=== PATIENT | male | born 1985 | race Hispanic/Latino ===

== ENCOUNTER 2018-12-30 23:39 | Emergency (ER) | payer OTHER ==
--- NOTE | 2018-12-31 00:06 | RAD ---
EXAM: Single view of the chest HISTORY: Syncope COMPARISON: None FINDINGS: Single view of the chest shows a normal sized cardiomediastinal silhouette. There is no laury dence of consolidation, mass, or pleural effusion. The bones are unremarkable. IMPRESSION: No evidence of acute cardiopulmonary disease
[2018-12-31 00:36] LABS: #Basophils 0.1 thou/uL (0.0-0.2); #Eosinphils 0.1 thou/uL (0.0-0.7); #Lymphocytes 2.2 thou/uL (1.20-3.40); #Monocytes 0.8 thou/uL (0.11-0.59); #Neutrophils 5.6 thou/uL (1.40-6.50); %Eosinophils 0.9 % (0.0-10.0); %Lymphocytes 25.2 % (21.0-51.0); %Monocytes 9.3 % (0.0-10.0); %Neutrophils 63.6 % (42.0-75.0); Hemoglobin 16.3 g/dL (14.0-18.0); Mean Corpuscular Hemoglobin 38.8 pg (27.0-31.0); Platelet Count 287 thou/uL (130-400); RBC Distribution Width 11.7 % (11.5-14.5); Red Blood Cell (RBC) Count 4.19 mill/uL (4.70-6.10); White Blood Cell (WBC) Count 8.8 thou/uL (4.8-10.8)
[2018-12-31 00:59] LABS: ALT (SGPT) 56 U/L (8-55); AST (SGOT) 53 U/L (5-34); Albumin 3.6 g/dL (3.5-5.0); Alkaline Phosphatase 79 U/L (40-110); Anion Gap 21 mmol/L (10-20); BUN (Urea Nitrogen) 9 mg/dL (8.9-20.6); Bilirubin, Total 0.6 mg/dL (0.2-1.2); Calc. Creatinine Clearance 0 mL/min (70-130); Carbon Dioxide 19 mmol/L (22-29); Chloride 101 mmol/L (98-107); Estimated GFR-MDRD 71; Globulin 3.4 g/dL (2.4-3.5); Glucose 113 mg/dL (70-105); Potassium 3.6 mmol/L (3.5-5.1); Sodium 137 mmol/L (136-145)
[2018-12-31] MEDS ORDERED: Mag-Al 1200 mg/1200 mg/30 ML UDCUP ONE (01:37)
[2018-12-31] MEDS ORDERED: Lidocaine Viscous Sol 2% 15 ml UD Cup ONE (01:37)
== END 2018-12-31 01:54 | disposition home or self-care (01) ==
LOC: EEVIPCON 23:39 → ERS 23:39
DX: R55 Syncope and collapse (principal); I10 Essential (primary) hypertension; Z79.899 Other long term (current) drug therapy
CPT/HCPCS: 36415; 71045; 80053; 84484; 85025; 93005; J0500

== ENCOUNTER 2018-12-31 07:02 | Inpatient (IN) | payer OTHER ==
[2018-12-31 07:45] LABS: #Lymphocytes 0.8 thou/uL (1.20-3.40); #Neutrophils 10.9 thou/uL (1.40-6.50); %Basophils 0.1 % (0.0-1.0); %Eosinophils 0.1 % (0.0-10.0); %Lymphocytes 6.5 % (21.0-51.0); %Monocytes 7.8 % (0.0-10.0); %Neutrophils 85.5 % (42.0-75.0); Hemoglobin 16.3 g/dL (14.0-18.0); Mean Corpuscular HGB CONC 35.5 g/dL (32.0-36.0); Mean Corpuscular Hemoglobin 37.9 pg (27.0-31.0); Mean Platelet Volume 6.6 fL (7.4-10.4); Platelet Count 264 thou/uL (130-400); RBC Distribution Width 11.7 % (11.5-14.5); Red Blood Cell (RBC) Count 4.29 mill/uL (4.70-6.10); White Blood Cell (WBC) Count 12.7 thou/uL (4.8-10.8)
--- NOTE | 2018-12-31 08:11 | CT ---
CT Abdomen Pelvis W Con History: Abdominal pain Comparison: CT abdomen and pelvis stone protocol 2009 Findings: Lung bases are clear. No pericardial effusion. There is mild edematous pancreatitis without evidence of necrosis. No acute peripancreatic fluid raymundo ection. Mild inflammatory retroperitoneal fluid around the pancreas in the anterior pararenal space. The liver is unremarkable along with the spleen and adrenal glands. No hydroureteronephrosis. No dilated loops of large or small bowel. Impression: Uncomplicated acute edematous pancreatitis without well-defined acute peripancreatic flui d collection.
[2018-12-31] MEDS ORDERED: Ondansetron PF 4 MG/2 ML Vial ONE (08:28)
[2018-12-31] MEDS ORDERED: Morphine 4 MG/ML VIAL ONE (08:28)
[2018-12-31 08:29] LABS: ALT (SGPT) 54 U/L (8-55); AST (SGOT) 42 U/L (5-34); Albumin 3.9 g/dL (3.5-5.0); Alkaline Phosphatase 88 U/L (40-110); Anion Gap 16 mmol/L (10-20); BUN (Urea Nitrogen) 7 mg/dL (8.9-20.6); Bilirubin, Total 0.7 mg/dL (0.2-1.2); Calc. Creatinine Clearance 0 mL/min (70-130); Calcium 9.1 mg/dL (7.8-10.44); Carbon Dioxide 26 mmol/L (22-29); Chloride 99 mmol/L (98-107); Estimated GFR-MDRD 77; Glucose 116 mg/dL (70-105); Potassium 3.8 mmol/L (3.5-5.1); Protein, Total 6.9 g/dL (6.0-8.3); Sodium 137 mmol/L (136-145)
[2018-12-31 08:43] LABS: Lipase 2387 U/L (8-78)
[2018-12-31] MEDS ORDERED: Fentanyl 100 MCG/2 ML VIAL ONE (09:30)
[2018-12-31] MEDS ORDERED: ISOVUE-370 76%-LOCM 1 ML ONE (09:45)
[2018-12-31 10:16] LABS: Bilirubin Negative (Negative); Blood, Urine Negative (Negative); Clarity Clear (Clear); Glucose, Urine (Dipstick) Normal (Negative); Leukocyte Negative Leu/uL (Negative); Nitrite Negative (Negative); Protein, Urine (Dipstick) Negative (Neg-Trace); Urobilinogen Normal mg/dL (Less than 2)
[2018-12-31 11:12] LABS: Lactic Acid 1.1 mmol/L (0.5-2.2)
[2018-12-31] MEDS ORDERED: Ondansetron PF 4 MG/2 ML Vial IVP PRN ×2 (11:49→15:01)
[2018-12-31] MEDS ORDERED: Ondansetron ODT 4 MG TAB SL PRN (11:49)
[2018-12-31] MEDS ORDERED: Morphine 4 MG/ML VIAL SLOW IVP PRN (11:50)
[2018-12-31 11:59] VITALS: BMI 31.8
[2018-12-31] MEDS: Sodium Chloride 0.9% 1,000 ML IV SCH ×4 (12:37→21:17)
[2018-12-31] MEDS ORDERED: Bisacodyl 5 MG TAB PO PRN (15:01)
[2018-12-31] MEDS ORDERED: Morphine 2 MG/ML SYRINGE SLOW IVP PRN (15:01)
[2018-12-31] MEDS: Fentanyl 100 MCG/2 ML VIAL SLOW IVP PRN ×2 (15:21→21:24)
[2018-12-31] MEDS: Ketorolac Tromethamine 30 MG/ML VIAL IVP PRN (18:33)
--- NOTE | 2018-12-31 18:40 | HP ---
PRIMARY CARE PROVIDER: [facility]. CHIEF COMPLAINT: Vomiting and abdominal pain. HISTORY OF PRESENT ILLNESS: Mr. Hill is a pleasant 33-year-old gentleman, who was seen at [facility] on December 31, 2018. He was hospitalized at this facility in November 2013, for cholecystitis and choledocholithiasis. He underwent laparoscopic cholecystectomy. He reports that he was doing relatively well since then. He reports having chronic diarrhea, attributes it to possible irritable bowel syndrome. Yesterday, he was at his mother's place. He had lunch. In the evening, he developed diffuse abdominal pain around 8:00 p.m. He describes it as sharp, 10/ 10, initially all over his abdomen, subsequently localizing to his upper abdomen, radiating to the back, accompanied by nausea. He vomited 3 times. He felt better. He got up to leave. He then felt lightheaded and fell to the floor. He reports hitting his head on the floor. He presented to the emergency room. He reports that he lost consciousness for a few seconds when he fell. He was discharged home from the emergency room. After he went home, he continued to have nausea and abdominal pain. He therefore presented to the emergency room again. He was diagnosed with acute pancreatitis and referred to Hospitalist Service for admission. REVIEW OF SYSTEMS: All systems were reviewed and found to be negative except for the pertinent positives mentioned above. PAST MEDICAL HISTORY: Hypertension. PAST SURGICAL HISTORY: Cholecystectomy and appendectomy. PSYCHIATRIC HISTORY: PTSD. SOCIAL HISTORY: The patient drinks 3 to 4 beers a day. Denies tobacco use or recreational drug use. ALLERGIES: NO KNOWN DRUG ALLERGIES. CURRENT MEDICATIONS: 1. Lexapro 20 mg daily. 2. Hydrochlorothiazide 12.5 mg daily. 3. Lisinopril 20 mg daily. FAMILY HISTORY: No family history of premature coronary artery disease. PHYSICAL EXAMINATION: GENERAL: On examination, Mr. Hill is awake and alert, not in acute distress. VITAL SIGNS: Blood pressure is 132/90, pulse 85, respiratory rate 22, and oxygen saturation 95% on room air. He is afebrile. EYES: No scleral icterus, no conjunctival pallor. ENT: Dry mucosal membranes. No oropharyngeal erythema or exudates. NECK: Supple, nontender, trachea is midline. RESPIRATORY: Accessory muscles of breathing are not active. Chest wall movements are symmetric bilaterally. LUNGS: Clear to auscultation without wheezes, rhonchi, or crepitations. CARDIOVASCULAR: S1 and S2 are heard, regular. Peripheral pulses palpable. ABDOMEN: Soft, tender in the epigastrium, no guarding or rigidity. Bowel sounds are heard. NEUROLOGIC: Cranial nerves 2 through 12 are intact. MUSCULOSKELETAL: Power is 5/5 in all 4 extremities. SKIN: No rashes or subcutaneous nodules. LYMPHATIC: No cervical lymphadenopathy. PSYCHIATRIC: Normal mood, normal affect. The patient is oriented to person, place, and time. LABORATORY DATA: Mr. Hill's labs and investigations were reviewed. Electrocardiogram shows normal sinus rhythm, no ST changes to suggest an acute coronary syndrome. Chest x-ray done yesterday did not show any pulmonary infiltrates. Today, he had CT scan of the abdomen and pelvis with contrast, which showed uncomplicated acute edematous pancreatitis without well-defined acute peripancreatic fluid collection. He has leukocytosis with 12,700 white cells, of which 85.5% are neutrophils, normal hemoglobin, normal platelet count, unremarkable comprehensive metabolic profile, and elevated lipase of 2387. Lactic acid was initially elevated at 2.6, subsequently normalized at 1.1. Urinalysis is positive for ketones, negative for nitrite, and leukocyte esterase. ASSESSMENT AND PLAN: Mr. Hill is a pleasant 33-year-old gentleman who was seen at [facility] on December 31, 2018. His problem list includes: 1. Acute pancreatitis. Mr. Hill is presenting with acute pancreatitis. He will be admitted to the hospital. He will be treated with intravenous fluids and pain medications. He will be kept n.p.o. except for ice chips. We will recheck lipase level. 2. Syncope, most likely vasovagal, given the context of for severe abdominal pain. We will monitor him on telemetry. We will check 2D echocardiogram to rule out any valvular abnormalities. We will check noncontrast CT scan of the brain given his history of head trauma. 3. Hypertension. Resume home medications, monitor vital signs and titrate antihypertensives as needed. 4. Posttraumatic stress disorder. Continue Lexapro. LEVEL OF RISK: Moderate. LEVEL OF COMPLEXITY: Moderate. Many thanks for allowing me to participate in your patient's care. Please feel free to contact me with any questions or concerns. Job ID: [id number] [facility]
[2019-01-01] MEDS: Acetaminophen 325 MG TAB PO PRN ×3 (00:25→18:05)
[2019-01-01] MEDS: Ketorolac Tromethamine 30 MG/ML VIAL IVP PRN ×4 (00:52→18:05)
[2019-01-01] MEDS: Fentanyl 100 MCG/2 ML VIAL SLOW IVP PRN ×3 (03:42→22:17)
[2019-01-01 04:52] LABS: ALT (SGPT) 36 U/L (8-55); AST (SGOT) 37 U/L (5-34); Albumin 3.1 g/dL (3.5-5.0); Alkaline Phosphatase 73 U/L (40-110); Anion Gap 14 mmol/L (10-20); BUN (Urea Nitrogen) 11 mg/dL (8.9-20.6); Bilirubin, Total 1.3 mg/dL (0.2-1.2); Calc. Creatinine Clearance 117 mL/min (70-130); Calcium 7.4 mg/dL (7.8-10.44); Carbon Dioxide 24 mmol/L (22-29); Cardiac Risk 3.4 (Less than 4.5); Chloride 103 mmol/L (98-107); Cholesterol 131 mg/dl (< 200 Desired); Estimated GFR-MDRD 78; Globulin 2.5 g/dL (2.4-3.5); Glucose 97 mg/dL (70-105); HDL Cholesterol 39 mg/dL (>60 Neg Risk); LDL Cholesterol, Calculated 78 mg/dL; Lipase 645 U/L (8-78); Potassium 3.6 mmol/L (3.5-5.1); Protein, Total 5.6 g/dL (6.0-8.3); Sodium 137 mmol/L (136-145); Triglycerides 70 mg/dL (Less than 150)
[2019-01-01 04:53] LABS: Hemoglobin 15.2 g/dL (14.0-18.0); MDiff Complete? YES; Mean Platelet Volume 7.4 fL (7.4-10.4); Platelet Count 197 thou/uL (130-400); RBC Distribution Width 11.8 % (11.5-14.5); White Blood Cell (WBC) Count 17.5 thou/uL (4.8-10.8)
[2019-01-01 04:54] LABS: Band 14 % (5-11); Hypochromia SLIGHT = 6-15 cells (100X) (0-5/hpf); Macrocytosis SLIGHT = 6-15 cells (100X) (0-5/hpf); Monocytes 1 % (0-10); Neutrophil 85 % (42-75); Platelet Morphology Comment Appears Adequate
[2019-01-01] MEDS: Sodium Chloride 0.9% 1,000 ML IV SCH ×3 (06:01→20:52)
--- NOTE | 2019-01-01 08:26 | CT ---
CT BRAIN NONCONTRAST: DATE: 01/01/2019 HISTORY: 33-year-old male status post acute head trauma from fall FINDINGS: There is no evidence of acute intra-axial or extra-axial hemorrhage. There is no midline shift or any other mass effect. There is no extra-axial fluid collection. The ventricles are normal in size and configuration. The tympanomastoid cavities, and the upper portions of the paranasal sinuses included in these images, are grossly clear. Calvarium is intact. IMPRESSION: Normal.
[2019-01-01] MEDS ORDERED: Enoxaparin Sodium 40 MG/0.4 ML SYRINGE SC SCH (09:00)
[2019-01-01] MEDS: Hydrochlorothiazide 25 MG TAB PO SCH (09:06)
[2019-01-01] MEDS: Lisinopril 20 MG TAB PO SCH (09:06)
[2019-01-01] MEDS: Escitalopram Oxalate 20 mg Tablet PO SCH (09:07)
[2019-01-01 09:52] LABS: Magnesium 1.2 mg/dL (1.6-2.6); Phosphorus 2.2 mg/dL (2.3-4.7)
[2019-01-01] MEDS: MEROPENEM 1 GM/50 ML 1 GM in Premix Bag 1 BAG IVPB SCH ×2 (11:20→18:05)
--- NOTE | 2019-01-01 15:12 | PDOC.HOSPP ---
- Subjective Encounter Date: 01/01/19 Encounter Time: 08:00 Subjective: Pt seen for followup re; acute pancreatitis. Abdo pain still +. nausea better. - Objective Vital Signs & Weight: Vital Signs (12 hours) Temp Pulse Resp BP BP Pulse Ox 01/01/19 11:46 98.0 F 65 20 117/83 92 L 01/01/19 09:06 121/88 01/01/19 09:03 98.3 F 93 22 H 121/88 93 L 01/01/19 04:00 99.4 F 91 18 115/75 92 L 01/01/19 03:39 97.9 F 99 20 114/77 94 L Weight Weight 194 lb 14.4 oz I&O: 12/31/18 01/01/19 01/02/19 06:59 06:59 06:59 Intake Total 1998 Output Total 150 Balance 1849 Result Diagrams: 01/01/19 03:55 01/01/19 03:55 Additional Labs: Labs and MARs reviewed by me EKG Reviewed by me: Yes (Tele: NSR) Hospitalist ROS - Review of Systems Respiratory: denies: cough, dry, shortness of breath, hemoptysis, SOB with excertion, pleuritic pain, sputum, wheezing Cardiovascular: denies: chest pain, palpitations, orthopnea, paroxysmal noc. dyspnea, edema, light headedness Gastrointestinal: reports: abdominal pain - Medication Medications: Active Medications Generic Name Dose Route Start Last Admin Trade Name Freq PRN Reason Stop Dose Admin Acetaminophen 650 mg 12/31/18 23:43 01/01/19 12:26 Tylenol PO 650 mg Q6H PRN Administration Headache/Fever or Pain Escitalopram Oxalate 20 mg 01/01/19 09:00 01/01/19 09:07 Lexapro PO 20 mg DAILY CHAVA Administration Fentanyl 12.5 mcg 12/31/18 15:05 01/01/19 09:03 Sublimaze SLOW IVP 12.5 mcg Q6H PRN Administration Pain Hydrochlorothiazide 12.5 mg 01/01/19 09:00 01/01/19 09:06 Hydrochlorothiazide PO 12.5 mg DAILY CHAVA Administration Sodium Chloride 1,000 mls @ 125 mls/hr 12/31/18 15:15 01/01/19 06:01 Normal Saline 0.9% IV 1,000 mls .Q8H CHAVA Administration Meropenem 1 gm/ Device 50 mls @ 100 mls/hr 01/01/19 10:00 01/01/19 11:20 IVPB 50 mls 0200,1000,1800 CHAVA Administration Ketorolac Tromethamine 15 mg 12/31/18 17:21 01/01/19 12:26 Toradol IVP 01/05/19 17:22 15 mg Q6H PRN Administration Pain Lisinopril 20 mg 01/01/19 09:00 01/01/19 09:06 Zestril PO 20 mg DAILY CHAVA Administration - Exam General - other findings: Obese Eye: anicteric sclera ENT: moist mucosa Neck: supple Heart: RRR, no rubs Respiratory: CTAB Gastrointestinal: soft, normal bowel sounds, no guarding, no rigidity, tender to palpation Extremities: no clubbing Skin: no rashes Musculoskeletal: no muscle wasting Psychiatric: normal affect, normal behavior Hosp A/P (1) Acute pancreatitis Code(s): K85.90 - ACUTE PANCREATITIS WITHOUT NECROSIS OR INFECTION, UNSP Status: Acute (2) HTN (hypertension) Code(s): I10 - ESSENTIAL (PRIMARY) HYPERTENSION Status: Chronic (3) PTSD (post-traumatic stress disorder) Code(s): F43.10 - POST-TRAUMATIC STRESS DISORDER, UNSPECIFIED Status: Chronic - Plan Lipase improved 645. Continue IV fluids. Continue IV fentanyl and IV toradol. Pt spiked robbie, has bandemia and worsening leucocytosis. Will start empiric antibiotics and await blood cultures. Consult GI service. HTN controlled. Continue Lexapro for PTSD.
[2019-01-01] MEDS ORDERED: Fentanyl 100 MCG/2 ML VIAL SLOW IVP SCH (15:15)
[2019-01-01] MEDS ORDERED: Sodium Chloride 0.9% 1,000 ML IV SCH (15:15)
[2019-01-02] MEDS: Ketorolac Tromethamine 30 MG/ML VIAL IVP PRN ×4 (00:30→19:00)
[2019-01-02] MEDS: MEROPENEM 1 GM/50 ML 1 GM in Premix Bag 1 BAG IVPB SCH ×3 (02:30→20:10)
[2019-01-02] MEDS: Acetaminophen 325 MG TAB PO PRN ×3 (02:32→14:32)
[2019-01-02] MEDS: Fentanyl 100 MCG/2 ML VIAL SLOW IVP PRN ×3 (04:20→17:04)
[2019-01-02] MEDS: Sodium Chloride 0.9% 1,000 ML IV SCH ×3 (05:24→20:11)
[2019-01-02 05:48] LABS: ALT (SGPT) 28 U/L (8-55); AST (SGOT) 29 U/L (5-34); Albumin 2.6 g/dL (3.5-5.0); Alkaline Phosphatase 71 U/L (40-110); Anion Gap 14 mmol/L (10-20); BUN (Urea Nitrogen) 17 mg/dL (8.9-20.6); Calc. Creatinine Clearance 107 mL/min (70-130); Calcium 6.6 mg/dL (7.8-10.44); Carbon Dioxide 22 mmol/L (22-29); Chloride 105 mmol/L (98-107); Estimated GFR-MDRD 68; Globulin 2.4 g/dL (2.4-3.5); Glucose 115 mg/dL (70-105); Lipase 241 U/L (8-78); Potassium 3.7 mmol/L (3.5-5.1); Sodium 137 mmol/L (136-145)
[2019-01-02 06:05] LABS: Hemoglobin 13.7 g/dL (14.0-18.0); Mean Corpuscular HGB CONC 34.3 g/dL (32.0-36.0); Mean Corpuscular Hemoglobin 38.1 pg (27.0-31.0); Mean Platelet Volume 7.9 fL (7.4-10.4); Platelet Count 164 thou/uL (130-400); RBC Distribution Width 11.8 % (11.5-14.5); White Blood Cell (WBC) Count 18.2 thou/uL (4.8-10.8)
[2019-01-02 06:06] LABS: Band 19 % (5-11); Lymphocytes 2 % (21-51); MDiff Complete? YES; Macrocytosis SLIGHT = 6-15 cells (100X) (0-5/hpf); Monocytes 5 % (0-10); Neutrophil 74 % (42-75)
--- NOTE | 2019-01-02 07:59 | CON ---
DATE OF CONSULTATION: 01/01/2019 REASON FOR CONSULTATION: Abdominal pain, nausea, vomiting, and evidence of pancreatitis. HISTORY OF PRESENT ILLNESS: Mr. Kris Hill is a 33-year-old male, known to me from before. He was hospitalized here in November 2013 with gallstones and also possible common bile duct stones. He underwent laparoscopic cholecystectomy by Dr. Mark Bravo. I did perform ERCP with removal of multiple gallstones. He has done well over the years after the surgery. He developed chronic diarrhea ever since cholecystectomy. He has multiple loose stools every day. His diarrhea is usually in daytime, noting during the nighttime. He has been going to the [facility] in [place]. He does see Dr. Alvarado, his primary care doctor. He was to told to have IBS, diarrhea. The patient developed acute abdominal pain, nausea, and vomiting on Saturday night. The pain is over the epigastric area and localized. Has nausea and vomiting. There is no fever or chills. The patient has had no prior history of acute pancreatitis. The patient came to the ER and was found to have evidence of pancreatitis. Abdominal CAT scan done showed peripancreatic edema and there is no bile duct dilation. The patient is n.p.o. on IV fluids and IV analgesics. Abdominal pain is persistent and he still has pain off and on. He is passing flatus. No more nausea and no more vomiting. The patient does drink alcohol on a regular basis. He says he drinks at least 4 beers every day. No relevant history. ALLERGIES: NONE. SOCIAL HISTORY: The patient is . Does not smoke, but drinks alcohol at least 4 beers everyday. MEDICAL ILLNESSES: 1. Hypertension. 2. PTSD. 3. Status post appendectomy. 4. Status post cholecystectomy. MEDICATION LIST: Reviewed. FAMILY HISTORY: Strong family history of gallstones, has family history of diabetes and coronary artery disease. REVIEW OF SYSTEMS: A 10-point system reviewed. CONSTITUTIONAL: No history of fever. No weight loss. Has good exercise tolerance. HEAD: No chronic headache. ENT: No diplopia. No impaired vision. No hearing loss. No nosebleed. No sore throat. CARDIOVASCULAR: No chest pain. No palpitation. No dyspnea, orthopnea, or PND. LUNGS: No chronic coughing. No hemoptysis. GI: As in history of present illness. : Nonrelevant. NEUROMUSCULAR: Nonrelevant. ENDOCRINE: Nonrelevant HEMATOLOGICAL: Nonrelevant. NEUROPSYCHIATRY: History of previous PTSD . PHYSICAL EXAMINATION: GENERAL: He appears comfortable, in no acute distress. He is well built and muscular. He has no distress. VITAL SIGNS: He is afebrile. Temperature 99.6 degrees Fahrenheit, pulse is 99, blood pressure is 160/76. HEENT: Conjunctivae are clear. NECK: Supple. No adenitis or thyromegaly noted. CARDIOVASCULAR: First and second heart sounds are normal. LUNGS: Clear to auscultation. ABDOMEN: Soft and nondistended. Abdomen is tender over the epigastric area, right upper quadrant. There is no rebound or guarding. No organomegaly. No masses. Bowel sounds are active. EXTREMITIES: Reveal no edema. LABORATORY DATA: From today, WBC 17,500, hemoglobin is 15.2, hematocrit 43.5, MCV 109, platelet count is 197,000 polymorphs 85, bandemia 14 present. Chemistry panel, lipase 2387 yesterday and today dropping to 645. Liver function tests are actually normal. Also, AST is 37, ALT 36, alkaline phosphatase is 73, bilirubin is 1.3. Chem-7 is normal. Calcium is 7.4 from 9.1 yesterday. He had abdominal CAT scan , it shows peripancreatic edema, no mass seen. CLINICAL IMPRESSION: 1. Acute pancreatitis, most likely alcohol induced. He has had laparoscopy and cholecystectomy in 2013. He does drink on a regular basis. His MCV is very elevated, indicative of probably chronic alcohol intake. 2. Hypertension. 3. Posttraumatic stress disorder. RECOMMENDATIONS: Continue IV fluids. Continue analgesics. Follow up labs. Job ID: [id number] [facility]
[2019-01-02] MEDS: Escitalopram Oxalate 20 mg Tablet PO SCH (08:11)
[2019-01-02] MEDS: Hydrochlorothiazide 25 MG TAB PO SCH (08:44)
[2019-01-02] MEDS: Lisinopril 20 MG TAB PO SCH (08:44)
[2019-01-02] MEDS ORDERED: Calcium Gluc 4.6 MEQ/10 ML (100 MG/ML) SLOW IVP SCH (08:52)
[2019-01-02] MEDS ORDERED: Furosemide 40 MG/4 ML VIAL SLOW IVP SCH ×3 (09:00→21:30)
[2019-01-02] MEDS ORDERED: Potassium Chloride 20 MEQ TAB PO SCH (09:30)
[2019-01-02] MEDS ORDERED: Magnesium Sulfate 4 GM in Sodium Chloride 0.9% 250 ML 250 ML IVPB SCH (09:30)
--- NOTE | 2019-01-02 10:42 | RAD ---
FRONTAL VIEW CHEST: COMPARISON: 12/30/2018. INDICATION: Short of breath, hypoxia. FINDINGS: There is a left basilar density, both pleural and parenchymal in location. Mild patchy density at th e right lung base is present. There is prominence of the cardiac silhouette and pulmonary vasculatur e. There are overlying leads limiting detail. IMPRESSION: 1. Left pleural effusion with adjacent atelectasis and/or pneumonia. 2. Fluid overload with evidence of vascular congestion. 3. Followup to resolution is recommended. POS: C
[2019-01-02] MEDS: ALPRAZolam 0.25 MG TAB PO PRN ×2 (12:23→20:09)
--- NOTE | 2019-01-02 14:18 | EKG ---
Test Reason : Blood Pressure : / mmHG Vent. Rate : 118 BPM Atrial Rate : 118 BPM P-R Int : 132 ms QRS Dur : 086 ms QT Int : 330 ms P-R-T Axes : 018 016 015 degrees QTc Int : 462 ms Sinus tachycardia Otherwise normal ECG When compared with ECG of 31-DEC-2018 07:31, (Unconfirmed) No significant change was found Confirmed by DR. Julia GATICA ([id number]) on 01/02/2019 2:18:29 PM Referred By: ADRI Confirmed By:DR. Julia GATICA
[2019-01-02] MEDS: Azithromycin 500 MG in Sodium Chloride 0.9% 250 ML 250 ML IVPB SCH (16:08)
--- NOTE | 2019-01-02 17:13 | PDOC.HOSPP ---
- Subjective Encounter Date: 01/02/19 Encounter Time: 11:00 Subjective: Pt seen for followup re: acute pancreatitis. Feels slightly better, still has abdominal pain. Has anxiety. - Objective Vital Signs & Weight: Vital Signs (12 hours) Temp Pulse Resp BP Pulse Ox 01/02/19 15:00 97.9 F 90 18 113/76 93 L 01/02/19 11:10 97.8 F 96 20 118/78 96 01/02/19 08:02 98.8 F 97 20 100/61 96 01/02/19 08:01 90 L Weight Weight 200 lb I&O: 01/01/19 01/02/19 01/03/19 06:59 06:59 06:59 Intake Total 1998 3969 Output Total 150 425 Balance 9723 0165 Result Diagrams: 01/02/19 04:56 01/02/19 04:56 Additional Labs: Labs and MARs reviewed by md Hospitalist ROS - Review of Systems Respiratory: reports: shortness of breath. denies: cough, SOB with excertion, pleuritic pain, wheezing Gastrointestinal: reports: abdominal pain, diarrhea. denies: nausea, vomiting, constipation, melena, hematochezia - Medication Medications: Active Medications Generic Name Dose Route Start Last Admin Trade Name Freq PRN Reason Stop Dose Admin Acetaminophen 650 mg 12/31/18 23:43 01/02/19 14:32 Tylenol PO 650 mg Q6H PRN Administration Headache/Fever or Pain Alprazolam 0.25 mg 01/02/19 09:17 01/02/19 12:23 Xanax PO 0.25 mg TIDPRN PRN Administration Anxiety Escitalopram Oxalate 20 mg 01/01/19 09:00 01/02/19 08:11 Lexapro PO 20 mg DAILY CHAVA Administration Fentanyl 12.5 mcg 12/31/18 15:05 01/02/19 17:04 Sublimaze SLOW IVP 12.5 mcg Q6H PRN Administration Pain Hydrochlorothiazide 12.5 mg 01/01/19 09:00 01/02/19 08:44 Hydrochlorothiazide PO Not Given DAILY CHAVA Meropenem 1 gm/ Device 50 mls @ 100 mls/hr 01/01/19 10:00 01/02/19 10:35 IVPB 50 mls 0200,1000,1800 CHAVA Administration Sodium Chloride 1,000 mls @ 125 mls/hr 01/01/19 20:15 01/02/19 12:22 Normal Saline 0.9% IV Not Given .Q8H CHAVA Azithromycin 500 mg/ Sodium 250 mls @ 250 mls/hr 01/02/19 15:00 01/02/19 16: 08 Chloride IVPB 250 mls Q24HR CHAVA Administration Ketorolac Tromethamine 15 mg 12/31/18 17:21 01/02/19 12:23 Toradol IVP 01/05/19 17:22 15 mg Q6H PRN Administration Pain Lisinopril 20 mg 01/01/19 09:00 01/02/19 08:44 Zestril PO Not Given DAILY CHAVA - Exam General - other findings: Obese Eye: anicteric sclera ENT: moist mucosa Neck: supple Heart: RRR, no rubs Respiratory - other findings: Bibasal crackles Gastrointestinal: soft, normal bowel sounds, no guarding, no rigidity, tender to palpation Gastrointestinal - other findings: Mild epigastric tenderness Extremities: no clubbing Musculoskeletal: normal strength Psychiatric: normal affect, normal behavior Hosp A/P (1) Acute pancreatitis Code(s): K85.90 - ACUTE PANCREATITIS WITHOUT NECROSIS OR INFECTION, UNSP Status: Acute (2) Hypocalcemia Code(s): E83.51 - HYPOCALCEMIA Status: Acute (3) Diastolic dysfunction Code(s): I51.89 - OTHER ILL-DEFINED HEART DISEASES Status: Acute (4) Volume overload Code(s): E87.70 - FLUID OVERLOAD, UNSPECIFIED Status: Acute (5) PTSD (post-traumatic stress disorder) Code(s): F43.10 - POST-TRAUMATIC STRESS DISORDER, UNSPECIFIED Status: Chronic (6) HTN (hypertension) Code(s): I10 - ESSENTIAL (PRIMARY) HYPERTENSION Status: Chronic - Plan plan discussed w/ family, continue antibiotics, out of bed/ambulate Lipase improved to 241. DC IV fluids, administer furosemide for volume overload. Replace calcium and monitor for saponification. Continue meropenem, follow vcultures. Continue IV fentanyl and IV toradol. HTN controlled. Continue Lexapro for PTSD. PRN xanax for anxiety. Check stool for C. diff.
--- NOTE | 2019-01-02 21:09 | CON ---
DATE OF CONSULTATION: 01/02/2019 REASON FOR CONSULTATION: Diastolic heart failure. HISTORY OF PRESENT ILLNESS: Mr. Hill is a very pleasant 33-year-old gentleman who comes to the hospital for abdominal pain, nausea, and vomiting. He was diagnosed with acute pancreatitis and was given a large amount of fluid resuscitation, which is adequate for an acute pancreatitis. He has a history of hypertension and he had his hydrochlorothiazide doubled about 2 weeks ago from 12.5 to 25 mg a day. He also had some alcohol about a week ago as well. Currently, he has some diarrhea, which he developed recently. He has some shortness of breath that he also developed. His chest x-ray done earlier today is suggestive of fluid overload and vascular congestion. PAST MEDICAL HISTORY: Hypertension. PAST SURGICAL HISTORY: 1. Cholecystectomy. 2. Appendectomy. SOCIAL HISTORY: 3-4 beers everyday. No tobacco or drug use. FAMILY HISTORY: Noncontributory. REVIEW OF SYSTEMS: 12-point review of system was done and was found to be negative aside from the History of Present Illness. OUTPATIENT MEDICATIONS: Includes: 1. Lisinopril 20 mg daily. 2. Hydrochlorothiazide 12.5 mg daily. 3. Lexapro 20 mg daily. ALLERGIES: NO KNOWN DRUG ALLERGIES. PHYSICAL EXAMINATION: VITAL SIGNS: Temperature 97.9, pulse 90, respiratory rate 18, saturating 92% on 2 L nasal cannula, blood pressure 113/76. GENERAL: Awake, alert, oriented x3. No distress. HEENT: Normocephalic, atraumatic. NECK: Supple. LUNGS: Clear. CARDIOVASCULAR: S1, S2. No S3 or S4. No murmurs, no rubs. ABDOMEN: Soft. Positive bowel sounds. EXTREMITIES: No edema. SKIN: Warm and dry. LABORATORY WORK: Reviewed. White count of 18, hemoglobin of 13, hematocrit of 39, platelet count of 164. Chemistries unremarkable except for a glucose of 115, calcium of 6.6, total bilirubin of 2.0, albumin of 2.6, and a lipase of 241 down from 645 on admission. UA was unremarkable. Blood cultures are negative. C diff toxins are negative as well. ASSESSMENT: 1. Acute pancreatitis. 2. Acute volume overload, likely from fluid resuscitation. 3. Hypertension. 4. Alcohol use. PLANS: 1. We will recommend stopping any hydrochlorothiazide now and in the near future as hydrochlorothiazide can cause pancreatitis. Most likely the cause of his pancreatitis is constant alcohol use. However, we will take this out of the question as well. We will stop hydrochlorothiazide. 2. Continue IV Lasix. We will increase to 20 mg IV twice a day as he is clearly volume overloaded and will stop IV fluids for now. 3. We will discuss with Dr. Poole as with pancreatitis usually fluid resuscitation is what is needed. 4. He has grade 1 diastolic dysfunction. His LV function is normal, unlikely this was changed, this was on an echo done yesterday. Thank you for letting us to participate in the care of the patient. We will continue to follow. Job ID: [id number]
[2019-01-02] MEDS: Dextrose 5 %-0.45 % NaCl 1,000 ML IV SCH (21:40)
[2019-01-03] MEDS: Fentanyl 100 MCG/2 ML VIAL SLOW IVP PRN ×4 (00:20→20:48)
[2019-01-03] MEDS: Ketorolac Tromethamine 30 MG/ML VIAL IVP PRN ×3 (01:43→16:34)
[2019-01-03] MEDS: MEROPENEM 1 GM/50 ML 1 GM in Premix Bag 1 BAG IVPB SCH ×3 (02:48→17:18)
[2019-01-03] MEDS: Acetaminophen 325 MG TAB PO PRN (02:51)
[2019-01-03 04:38] LABS: ALT (SGPT) 24 U/L (8-55); AST (SGOT) 22 U/L (5-34); Albumin 2.6 g/dL (3.5-5.0); Alkaline Phosphatase 93 U/L (40-110); Anion Gap 9 mmol/L (10-20); BUN (Urea Nitrogen) 15 mg/dL (8.9-20.6); Bilirubin, Total 1.1 mg/dL (0.2-1.2); Calc. Creatinine Clearance 113 mL/min (70-130); Calcium 7.1 mg/dL (7.8-10.44); Carbon Dioxide 27 mmol/L (22-29); Chloride 101 mmol/L (98-107); Estimated GFR-MDRD 71; Globulin 2.7 g/dL (2.4-3.5); Glucose 144 mg/dL (70-105); Lipase 127 U/L (8-78); Potassium 3.3 mmol/L (3.5-5.1); Protein, Total 5.3 g/dL (6.0-8.3); Sodium 134 mmol/L (136-145)
[2019-01-03 05:41] LABS: Band 15 % (5-11); Eosinophils 2 % (0-10); Lymphocytes 6 % (21-51); MDiff Complete? YES; Macrocytosis SLIGHT = 6-15 cells (100X) (0-5/hpf); Mean Corpuscular HGB CONC 33.5 g/dL (32.0-36.0); Mean Corpuscular Hemoglobin 36.7 pg (27.0-31.0); Mean Platelet Volume 7.6 fL (7.4-10.4); Monocytes 5 % (0-10); Neutrophil 71 % (42-75); Platelet Count 169 thou/uL (130-400); Platelet Morphology Comment Appears Adequate; RBC Distribution Width 11.7 % (11.5-14.5); Reactive Lymphocytes 1 % (0-10); Red Blood Cell (RBC) Count 3.55 mill/uL (4.70-6.10); White Blood Cell (WBC) Count 14.3 thou/uL (4.8-10.8)
[2019-01-03] MEDS ORDERED: Furosemide 20 MG/2 ML VIAL SLOW IVP SCH (06:00)
[2019-01-03] MEDS: Furosemide 40 MG/4 ML VIAL SLOW IVP SCH ×2 (06:16→15:03)
[2019-01-03] MEDS: Dextrose 5 %-0.45 % NaCl 1,000 ML IV SCH ×2 (06:17→15:55)
[2019-01-03] MEDS: ALPRAZolam 0.25 MG TAB PO PRN ×3 (06:32→23:02)
[2019-01-03] MEDS: Escitalopram Oxalate 20 mg Tablet PO SCH (10:09)
[2019-01-03] MEDS: Lisinopril 20 MG TAB PO SCH (10:16)
--- NOTE | 2019-01-03 11:03 | PRG ---
DATE OF SERVICE: 01/03/2019 SUBJECTIVE: Mr. Hill has been tolerating a clear liquid diet for the past day, he says without any increase in abdominal pain, though he does have persistent discomfort through the night and even this morning. No nausea or vomiting. He has been having some loose bowel movements and also having frequent urination due to the Lasix. He says his breathing is much better. He is a bit hesitant to advance his diet any further due to some ongoing epigastric discomfort. OBJECTIVE: VITAL SIGNS: Temperature 98.1, pulse 86, blood pressure 113/74, and 93% oxygen saturation on 2 L nasal cannula. GENERAL: No acute distress. HEART: Regular rate and rhythm. LUNGS: Clear to auscultation bilaterally. ABDOMEN: Mild distention and tympanitic to percussion. Bowel sounds are hypoactive, but present and soft. Some tenderness to palpation in the epigastrium. No guarding or rebound tenderness. EXTREMITIES: No peripheral edema. LABORATORY STUDIES: Sodium 134, potassium 3.3, BUN 15, creatinine down to 1.17, total bilirubin down to 1.1, alkaline phosphatase 93, AST 22, ALT 24, and lipase down to 127. WBC down to 14.3, hemoglobin 13.0, and platelets 169. ASSESSMENT AND PLAN: 1. Acute alcoholic pancreatitis. Slowly clinically improving. 2. Leukocytosis. The patient is on meropenem. 3. Fluid overload. The patient appropriately received aggressive fluid resuscitation on admission. Now receiving diuresis with improvement in respiratory status. With the patient's ongoing epigastric discomfort, I would probably keep him on clear liquids for the remainder of the day. Otherwise, continue current supportive care. Job ID: [id number]
--- NOTE | 2019-01-03 11:36 | PDOC.HOSPP ---
- Subjective Encounter Date: 01/03/19 Encounter Time: 10:00 Subjective: +abdominal pain.. - Objective Vital Signs & Weight: Vital Signs (12 hours) Temp Pulse Pulse Pulse Resp BP BP 01/03/19 10:27 96 90 131/86 129/89 01/03/19 10:12 97.7 F 86 24 H 01/03/19 07:56 98.1 F 86 28 H 01/03/19 07:30 01/03/19 03:31 99.3 F 106 H 18 BP Pulse Ox 01/03/19 10:27 01/03/19 10:12 131/86 94 L 01/03/19 07:56 113/74 93 L 01/03/19 07:30 91 L 01/03/19 03:31 120/79 91 L Weight Weight 199 lb 12.8 oz I&O: 01/02/19 01/03/19 01/04/19 06:59 06:59 06:59 Intake Total 3970 3355 Output Total 425 3000 Balance 3545 355 Result Diagrams: 01/03/19 04:07 01/03/19 04:07 Hospitalist ROS - Medication Medications: Active Medications Generic Name Dose Route Start Last Admin Trade Name Freq PRN Reason Stop Dose Admin Acetaminophen 650 mg 12/31/18 23:43 01/03/19 02:51 Tylenol PO 650 mg Q6H PRN Administration Headache/Fever or Pain Alprazolam 0.25 mg 01/02/19 09:17 01/03/19 10:05 Xanax PO 0.25 mg TIDPRN PRN Administration Anxiety Escitalopram Oxalate 20 mg 01/01/19 09:00 01/03/19 10:09 Lexapro PO 20 mg DAILY [facility] Administration Fentanyl 12.5 mcg 12/31/18 15:05 01/03/19 06:32 Sublimaze SLOW IVP 12.5 mcg Q6H PRN Administration Pain Furosemide 40 mg 01/03/19 06:00 01/03/19 06:16 Lasix SLOW IVP 40 mg 0600,1400 [facility] Administration Meropenem 1 gm/ Device 50 mls @ 100 mls/hr 01/01/19 10:00 01/03/19 10:10 IVPB 50 mls 0200,1000,1800 [facility] Administration Azithromycin 500 mg/ Sodium 250 mls @ 250 mls/hr 01/02/19 15:00 01/02/19 16: 08 Chloride IVPB 250 mls Q24HR [facility] Administration Dextrose/Sodium Chloride 1,000 mls @ 100 mls/hr 01/02/19 20:30 01/03/19 06:17 D5 1/2 Ns IV 1,000 mls .Q10H [facility] Administration Ketorolac Tromethamine 15 mg 12/31/18 17:21 01/03/19 10:05 Toradol IVP 01/05/19 17:22 15 mg Q6H PRN Administration Pain Lisinopril 20 mg 01/01/19 09:00 01/03/19 10:16 Zestril PO 20 mg DAILY [facility] Administration Sodium Chloride 10 ml 01/02/19 21:00 01/03/19 10:10 Flush - Normal Saline IVF 10 ml Q12HR [facility] Administration - Exam General Appearance: NAD Neck: no JVD Heart: RRR Respiratory: rhonchi Gastrointestinal: tender to palpation Extremities: no edema Neurological: no focal deficits Hosp A/P (1) Acute pancreatitis Code(s): K85.90 - ACUTE PANCREATITIS WITHOUT NECROSIS OR INFECTION, UNSP Status: Acute (2) Diastolic dysfunction Code(s): I51.89 - OTHER ILL-DEFINED HEART DISEASES Status: Acute (3) Hypocalcemia Code(s): E83.51 - HYPOCALCEMIA Status: Acute Plan: due to pancreatitis.. (4) Volume overload Code(s): E87.70 - FLUID OVERLOAD, UNSPECIFIED Status: Acute Plan: With associated pleural effusion, possibly due to pancreatitis.. (5) HTN (hypertension) Code(s): I10 - ESSENTIAL (PRIMARY) HYPERTENSION Status: Chronic Plan: Not a problem at this time.. (6) PTSD (post-traumatic stress disorder) Code(s): F43.10 - POST-TRAUMATIC STRESS DISORDER, UNSPECIFIED Status: Chronic - Plan Continue current management.. Analgesics prn.. f/u chest x-ray..
--- NOTE | 2019-01-03 12:26 | RAD ---
EXAM: CHEST ONE VIEW HISTORY: Pneumonia. COMPARISON: 01/02/2019 FINDINGS: The cardiac silhouette and pulmonary vasculature is within normal limits. There is been interval incr ease in pleural and parenchymal changes on the left with pleural and parenchymal changes now extending to the left upper lung zone. Findings may represent left pleural effusion and associated in filtrate/pneumonia. Follow-up to resolution is recommended. Linear areas of atelectasis versus scarring are again seen at the medial right lung base. The osseous structures are intact. No other in terval change. IMPRESSION: Interval increase in pleural and parenchymal changes left hemithorax. Findings may represent left ple ural effusion and associated infiltrate/pneumonia. Follow-up to complete resolution is recommended.
[2019-01-03] MEDS: Azithromycin 500 MG in Sodium Chloride 0.9% 250 ML 250 ML IVPB SCH (15:53)
[2019-01-03] MEDS ORDERED: Loperamide HCl 2 MG CAP PO PRN (16:48)
--- NOTE | 2019-01-03 18:01 | PDOC.CPN ---
- Subjective Date: 01/03/19 Time: 17:59 Interval history: He is feeling much better. Breathing better on room air now. - Review of Systems General: denies: fever/chills, weight/appetite/sleep changes, night sweats, fatigue Respiratory: denies: cough, congestion, shortness of breath, exercise intolerance Cardiovascular: denies: chest pain, palpitation, edema, paroxysmal nocturnal dyspnea, orthopnea Gastrointestinal: reports: abd pain. denies: nausea, vomiting, diarrhea, constipation, GI bleeding Musculoskeletal: denies: pain, tenderness, stiffness, swelling, arthritis/ arthralgias Neurological: denies: numbness, syncope, seizure, weakness - Objective Allergies/Adverse Reactions: Allergies Allergy/AdvReac Type Severity Reaction Status Date / Time No Known Allergies Allergy Verified 12/31/18 11:50 Visit Medications: Current Medications Acetaminophen (Tylenol) 650 mg PO Q6H PRN PRN Reason: Headache/Fever or Pain Last Admin: 01/03/19 02:51 Dose: 650 mg Alprazolam (Xanax) 0.25 mg PO TIDPRN PRN PRN Reason: Anxiety Last Admin: 01/03/19 10:05 Dose: 0.25 mg Bisacodyl (Dulcolax) 10 mg PO DAILYPRN PRN PRN Reason: Constipation Escitalopram Oxalate (Lexapro) 20 mg PO DAILY [facility] Last Admin: 01/03/19 10:09 Dose: 20 mg Fentanyl (Sublimaze) 12.5 mcg SLOW IVP Q6H PRN PRN Reason: Pain Last Admin: 01/03/19 15:03 Dose: 12.5 mcg Furosemide (Lasix) 40 mg SLOW IVP 0600,1400 [facility] Last Admin: 01/03/19 15:03 Dose: 40 mg Meropenem 1 gm/ Device 50 mls @ 100 mls/hr IVPB 0200,1000,1800 [facility] Last Admin: 01/03/19 17:18 Dose: 50 mls Azithromycin 500 mg/ Sodium (Chloride) 250 mls @ 250 mls/hr IVPB Q24HR [facility] Last Admin: 01/03/19 15:53 Dose: 250 mls Dextrose/Sodium Chloride (D5 1/2 Ns) 1,000 mls @ 100 mls/hr IV .Q10H [facility] Last Admin: 01/03/19 15:55 Dose: 1,000 mls Ketorolac Tromethamine (Toradol) 15 mg IVP Q6H PRN PRN Reason: Pain Stop: 01/05/19 17:22 Last Admin: 01/03/19 16:34 Dose: 15 mg Lisinopril (Zestril) 20 mg PO DAILY [facility] Last Admin: 01/03/19 10:16 Dose: 20 mg Loperamide HCl (Imodium) 2 mg PO Q6H PRN PRN Reason: Diarrhea/Loose Stools Last Admin: 01/03/19 17:20 Dose: 2 mg Ondansetron HCl (Zofran) 4 mg IVP Q6H PRN PRN Reason: Nausea/Vomiting Sodium Chloride (Flush - Normal Saline) 10 ml IVF Q12HR [facility] Last Admin: 01/03/19 10:10 Dose: 10 ml Sodium Chloride (Flush - Normal Saline) 10 ml IVF PRN PRN PRN Reason: Saline Flush Vital Signs & Weight: Vital Signs Temp Pulse Pulse Pulse Resp BP BP 01/03/19 15:17 98.1 F 97 28 H 01/03/19 11:51 97.8 F 86 20 01/03/19 10:27 96 90 131/86 129/89 01/03/19 10:12 97.7 F 86 24 H 01/03/19 07:56 98.1 F 86 28 H 01/03/19 07:30 BP Pulse Ox 01/03/19 15:17 133/88 94 L 01/03/19 11:51 111/77 96 01/03/19 10:27 01/03/19 10:12 131/86 94 L 01/03/19 07:56 113/74 93 L 01/03/19 07:30 91 L Weight 199 lb 12.8 oz - Physical Exam General: alert & oriented x3 HEENT: mucus membranes moist Neck: supple neck, midline trachea Cardiac: regular rate and rhythm, no murmur Lungs: clear to auscultation Neuro: grossly intact Abdomen: active bowel sounds, soft, tender Extremities: no edema Skin: clear Musculoskeletal: no pain - Labs Result Diagrams: 01/03/19 04:07 01/03/19 04:07 - Telemetry Sinus rhythms and dysrhythmias: sinus rhythm - Assessment/Plan Assessment/Plan: 1. Acute pancreatitis 2. Acute volume overload, likely from IV hydration 3. HTN 4. Alcohol use PLAN: - Conitnue to hold HCTZ indefinetely as it may be cause of pancreatitis. - BP well controlled on current regimen - Continue IV fluids and IV lasix at current doses. Slowly negative without stopping hydration for pancreatitis.
[2019-01-04] MEDS: MEROPENEM 1 GM/50 ML 1 GM in Premix Bag 1 BAG IVPB SCH ×3 (02:41→17:57)
[2019-01-04] MEDS: Fentanyl 100 MCG/2 ML VIAL SLOW IVP PRN ×2 (03:28→09:39)
[2019-01-04] MEDS: Dextrose 5 %-0.45 % NaCl 1,000 ML IV SCH ×2 (03:30→16:18)
[2019-01-04] MEDS: Furosemide 40 MG/4 ML VIAL SLOW IVP SCH ×2 (06:22→13:52)
[2019-01-04] MEDS: Ketorolac Tromethamine 30 MG/ML VIAL IVP PRN ×3 (06:23→21:16)
[2019-01-04] MEDS: Lisinopril 20 MG TAB PO SCH (09:33)
[2019-01-04] MEDS: Escitalopram Oxalate 20 mg Tablet PO SCH (09:33)
--- NOTE | 2019-01-04 10:07 | PDOC.HOSPP ---
- Subjective Encounter Date: 01/04/19 Encounter Time: 08:50 Subjective: No new complaint.. Abdominal pain is less.. - Objective Vital Signs & Weight: Vital Signs (12 hours) Temp Pulse Resp BP Pulse Ox 01/04/19 07:27 93 L 01/04/19 07:24 99.1 F 78 28 H 121/76 93 L 01/04/19 04:00 99.1 F 93 16 118/70 93 L 01/03/19 23:50 106 H 133/78 92 L Weight Weight 202 lb I&O: 01/03/19 01/04/19 01/05/19 06:59 06:59 06:59 Intake Total 3355 3750 Output Total 3000 2525 Balance 355 1225 Result Diagrams: 01/03/19 04:07 01/03/19 04:07 Hospitalist ROS - Medication Medications: Active Medications Generic Name Dose Route Start Last Admin Trade Name Freq PRN Reason Stop Dose Admin Acetaminophen 650 mg 12/31/18 23:43 01/03/19 02:51 Tylenol PO 650 mg Q6H PRN Administration Headache/Fever or Pain Alprazolam 0.25 mg 01/02/19 09:17 01/03/19 23:02 Xanax PO 0.25 mg TIDPRN PRN Administration Anxiety Escitalopram Oxalate 20 mg 01/01/19 09:00 01/04/19 09:33 Lexapro PO 20 mg DAILY [facility] Administration Fentanyl 12.5 mcg 12/31/18 15:05 01/04/19 09:39 Sublimaze SLOW IVP 12.5 mcg Q6H PRN Administration Pain Furosemide 40 mg 01/03/19 06:00 01/04/19 06:22 Lasix SLOW IVP 40 mg 0600,1400 [facility] Administration Meropenem 1 gm/ Device 50 mls @ 100 mls/hr 01/01/19 10:00 01/04/19 09:29 IVPB 50 mls 0200,1000,1800 [facility] Administration Azithromycin 500 mg/ Sodium 250 mls @ 250 mls/hr 01/02/19 15:00 01/03/19 15: 53 Chloride IVPB 250 mls Q24HR [facility] Administration Dextrose/Sodium Chloride 1,000 mls @ 100 mls/hr 01/02/19 20:30 01/04/19 03:30 D5 1/2 Ns IV 1,000 mls .Q10H [facility] Administration Ketorolac Tromethamine 15 mg 12/31/18 17:21 01/04/19 06:23 Toradol IVP 01/05/19 17:22 15 mg Q6H PRN Administration Pain Lisinopril 20 mg 01/01/19 09:00 01/04/19 09:33 Zestril PO 20 mg DAILY [facility] Administration Loperamide HCl 2 mg 01/03/19 16:48 01/03/19 17:20 Imodium PO 2 mg Q6H PRN Administration Diarrhea/Loose Stools Sodium Chloride 10 ml 01/02/19 21:00 01/04/19 09:33 Flush - Normal Saline IVF 10 ml Q12HR [facility] Administration - Exam Neck: no JVD Heart: RRR Respiratory: CTAB Gastrointestinal: tender to palpation Extremities: no edema, 1+ LE edema Hosp A/P (1) Acute pancreatitis Code(s): K85.90 - ACUTE PANCREATITIS WITHOUT NECROSIS OR INFECTION, UNSP Status: Acute (2) Hypocalcemia Code(s): E83.51 - HYPOCALCEMIA Status: Acute Plan: due to pancratitis.. (3) Volume overload Code(s): E87.70 - FLUID OVERLOAD, UNSPECIFIED Status: Acute Plan: Pulmonary infiltrate/pleural effusion on chest x-ray...conerned for pancratitis associated pneumonia.. (4) HTN (hypertension) Code(s): I10 - ESSENTIAL (PRIMARY) HYPERTENSION Status: Chronic Plan: BP satisfactory.. (5) PTSD (post-traumatic stress disorder) Code(s): F43.10 - POST-TRAUMATIC STRESS DISORDER, UNSPECIFIED Status: Chronic - Plan Continue current management.. Analgesics prn.. f/u chest x-ray..Concerned for pancreatitis associated pneumonia.. On antibiotics. f/u with GI.
--- NOTE | 2019-01-04 11:28 | PRG ---
DATE OF SERVICE: 01/04/2019 SUBJECTIVE: Mr. Hill says he is feeling a bit better. He tolerated his clear liquid diet yesterday and this morning without issues. His abdominal discomfort is less. He is not nauseated. He feels his breathing is a bit better as well. OBJECTIVE: VITAL SIGNS: Temperature 99.1, pulse 78, blood pressure 121/76, and 93% oxygen saturation on room air. GENERAL: In no acute distress. HEART: Regular rate and rhythm. LUNGS: Bibasilar crackles, no respiratory distress. ABDOMEN: Bowel sounds are hypoactive, but present, soft, some mild tenderness to palpation in the epigastrium, no guarding, rebound, tenderness. EXTREMITIES: No peripheral edema. ASSESSMENT AND PLAN: 1. Acute pancreatitis, secondary to alcohol. Continues to slowly clinically improve. I think we can try advancing the diet to full liquids today. 2. Fluid overload versus pneumonia. The patient remains on meropenem as well as IV Lasix. Respiratory status id improved. Dameon receiving azithromycin. Cardiology is following. Job ID: [id number]
[2019-01-04] MEDS: ALPRAZolam 0.25 MG TAB PO PRN ×2 (13:53→21:17)
[2019-01-04] MEDS: Azithromycin 500 MG in Sodium Chloride 0.9% 250 ML 250 ML IVPB SCH (14:05)
--- NOTE | 2019-01-04 18:35 | PDOC.CPN ---
- Subjective Date: 01/04/19 Time: 18:33 Interval history: No new issues Breathing still an issue. - Review of Systems General: denies: fever/chills, weight/appetite/sleep changes, night sweats, fatigue Respiratory: reports: shortness of breath. denies: cough, congestion, exercise intolerance Cardiovascular: denies: chest pain, palpitation, edema, paroxysmal nocturnal dyspnea, orthopnea Gastrointestinal: denies: nausea, vomiting, diarrhea, constipation, abd pain, GI bleeding Musculoskeletal: denies: pain, tenderness, stiffness, swelling, arthritis/ arthralgias Neurological: denies: numbness, syncope, seizure, weakness - Objective Allergies/Adverse Reactions: Allergies Allergy/AdvReac Type Severity Reaction Status Date / Time No Known Allergies Allergy Verified 12/31/18 11:50 Visit Medications: Current Medications Acetaminophen (Tylenol) 650 mg PO Q6H PRN PRN Reason: Headache/Fever or Pain Last Admin: 01/03/19 02:51 Dose: 650 mg Alprazolam (Xanax) 0.25 mg PO TIDPRN PRN PRN Reason: Anxiety Last Admin: 01/04/19 13:53 Dose: 0.25 mg Bisacodyl (Dulcolax) 10 mg PO DAILYPRN PRN PRN Reason: Constipation Escitalopram Oxalate (Lexapro) 20 mg PO DAILY [facility] Last Admin: 01/04/19 09:33 Dose: 20 mg Fentanyl (Sublimaze) 12.5 mcg SLOW IVP Q6H PRN PRN Reason: Pain Last Admin: 01/04/19 09:39 Dose: 12.5 mcg Furosemide (Lasix) 40 mg SLOW IVP 0600,1400 [facility] Last Admin: 01/04/19 13:52 Dose: 40 mg Meropenem 1 gm/ Device 50 mls @ 100 mls/hr IVPB 0200,1000,1800 [facility] Last Admin: 01/04/19 17:57 Dose: 50 mls Azithromycin 500 mg/ Sodium (Chloride) 250 mls @ 250 mls/hr IVPB Q24HR [facility] Last Admin: 01/04/19 14:05 Dose: 250 mls Ketorolac Tromethamine (Toradol) 15 mg IVP Q6H PRN PRN Reason: Pain Stop: 01/05/19 17:22 Last Admin: 01/04/19 13:52 Dose: 15 mg Lisinopril (Zestril) 20 mg PO DAILY [facility] Last Admin: 01/04/19 09:33 Dose: 20 mg Loperamide HCl (Imodium) 2 mg PO Q6H PRN PRN Reason: Diarrhea/Loose Stools Last Admin: 01/03/19 17:20 Dose: 2 mg Ondansetron HCl (Zofran) 4 mg IVP Q6H PRN PRN Reason: Nausea/Vomiting Sodium Chloride (Flush - Normal Saline) 10 ml IVF Q12HR [facility] Last Admin: 01/04/19 09:33 Dose: 10 ml Sodium Chloride (Flush - Normal Saline) 10 ml IVF PRN PRN PRN Reason: Saline Flush Vital Signs & Weight: Vital Signs Temp Pulse Resp BP Pulse Ox 01/04/19 16:00 98.6 F 81 31 H 120/71 93 L 01/04/19 11:58 99.0 F 86 30 H 109/77 92 L 01/04/19 07:27 93 L 01/04/19 07:24 99.1 F 78 28 H 121/76 93 L Weight 202 lb - Physical Exam General: alert & oriented x3 HEENT: mucus membranes moist Neck: supple neck Cardiac: regular rate and rhythm Lungs: bibasilar rales Neuro: grossly intact Abdomen: active bowel sounds, soft, non-tender Extremities: no edema Skin: clear Musculoskeletal: no pain - Labs Result Diagrams: 01/03/19 04:07 01/03/19 04:07 - Telemetry Sinus rhythms and dysrhythmias: sinus rhythm - Assessment/Plan Assessment/Plan: 1. Acute pancreatitis 2. Acute volume overload, likely from IV hydration 3. HTN 4. Alcohol use PLAN: - Continue to hold HCTZ indefinitely as it may be cause of pancreatitis. - BP well controlled on current regimen - He has been positive every day since admission. Will strop IV fluids and will diurese as he remains tachypneic.
[2019-01-04] MEDS ORDERED: Guaifenesin DM 100-10/5 ML UDCUP PO PRN ×2 (21:48→21:50)
[2019-01-05] MEDS: Ketorolac Tromethamine 30 MG/ML VIAL IVP PRN ×3 (02:34→14:58)
[2019-01-05] MEDS: MEROPENEM 1 GM/50 ML 1 GM in Premix Bag 1 BAG IVPB SCH ×3 (02:34→17:40)
[2019-01-05] MEDS: Furosemide 40 MG/4 ML VIAL SLOW IVP SCH ×2 (06:24→14:07)
--- NOTE | 2019-01-05 08:18 | PRG ---
DATE OF SERVICE: 01/02/2019 SUBJECTIVE: This is a 33-year-old male, hospitalized two days ago with abdominal pain, nausea, and vomiting and found to have evidence of pancreatitis. The patient has had previous cholecystectomy 5 years ago. The patient admits to drinking a beer every day. He says he drinks 3-4 beers every day. The patient's abdominal pain is slightly getting better. He still has abdominal pain, but not as bad as before. He has had no more nausea, no vomiting. He is passing flatus and his stools. Lipase level has been coming down. The lipase yesterday was 645 and today dropping to 41. The liver function tests are normal except for bilirubin of 2 present. The AST, ALT, and alkaline phosphatase is normal. PHYSICAL EXAMINATION: GENERAL: Appears more comfortable today than yesterday, in no distress. VITAL SIGNS: Afebrile. Pulse is 97, blood pressure 100/61. HEENT: Conjunctivae clear. NECK: Supple. CARDIOVASCULAR: First and second heart sounds are normal. LUNGS: Clear to auscultation. ABDOMEN: Soft and less tender than before. He is woven blind loom tender over the epigastric area and periumbilical area. There is no rebound or guarding. He has active bowel sounds. LABORATORY DATA: Shows chem 7 is normal. Potassium 3.7, calcium is dropped down to 6.6. Glucose is 115, bilirubin 2 mg present, transaminases normal. Albumin 2.6, lipase 241. CBC; WBC has gone up to 18,200, hemoglobin 13.7, hematocrit 39.1, polymorphs 74, lymphocytes 19. The chest x-ray shows some pulmonary congestion and also left pleural effusion. CLINICAL IMPRESSION: 1. Acute pancreatitis, most likely alcohol induced as he has had a previous cholecystectomy. 2. Unlikely to be due to biliary pancreatitis as liver function tests normal. RECOMMENDATIONS: 1. Continue IV fluids. 2. Continue analgesics. 3. Followup labs. I had a long talk with Mr. Hill explaining that he needs something completely. I will be out till Saturday and please call Dr. Daquan Coffey if you need any assistance. He is on-call for me. Job ID: [id number]
[2019-01-05] MEDS: Escitalopram Oxalate 20 mg Tablet PO SCH (09:20)
[2019-01-05] MEDS: Lisinopril 20 MG TAB PO SCH (09:20)
[2019-01-05] MEDS: Azithromycin 500 MG in Sodium Chloride 0.9% 250 ML 250 ML IVPB SCH (14:06)
[2019-01-05] MEDS: ALPRAZolam 0.25 MG TAB PO PRN ×2 (14:36→20:49)
--- NOTE | 2019-01-05 14:53 | PDOC.HOSPP ---
- Subjective Encounter Date: 01/05/19 Encounter Time: 14:51 Subjective: abd pain is better, eating minimally - Objective Vital Signs & Weight: Vital Signs (12 hours) Temp Pulse Resp BP BP Pulse Ox 01/05/19 11:31 98.7 F 70 18 120/70 93 L 01/05/19 08:19 98.5 F 70 18 133/71 92 L 01/05/19 04:00 98.5 F 81 14 117/66 92 L Weight Weight 199 lb 1.6 oz I&O: 01/04/19 01/05/19 01/06/19 06:59 06:59 06:59 Intake Total 3750 2445 Output Total 6150 2660 Balance 1225 -1115 Result Diagrams: 01/03/19 04:07 01/03/19 04:07 Hospitalist ROS - Medication Medications: Active Medications Generic Name Dose Route Start Last Admin Trade Name Freq PRN Reason Stop Dose Admin Acetaminophen 650 mg 12/31/18 23:43 01/03/19 02:51 Tylenol PO 650 mg Q6H PRN Administration Headache/Fever or Pain Alprazolam 0.25 mg 01/02/19 09:17 01/05/19 14:36 Xanax PO 0.25 mg TIDPRN PRN Administration Anxiety Escitalopram Oxalate 20 mg 01/01/19 09:00 01/05/19 09:20 Lexapro PO 20 mg DAILY [facility] Administration Fentanyl 12.5 mcg 12/31/18 15:05 01/04/19 09:39 Sublimaze SLOW IVP 12.5 mcg Q6H PRN Administration Pain Furosemide 40 mg 01/03/19 06:00 01/05/19 14:07 Lasix SLOW IVP 40 mg 0600,1400 [facility] Administration Guaifenesin/Dextromethorphan 15 ml 01/04/19 21:50 01/04/19 21:57 Robitussin Dm PO 15 ml Q4H PRN Administration Cough Meropenem 1 gm/ Device 50 mls @ 100 mls/hr 01/01/19 10:00 01/05/19 09:20 IVPB 50 mls 0200,1000,1800 [facility] Administration Azithromycin 500 mg/ Sodium 250 mls @ 250 mls/hr 01/02/19 15:00 01/05/19 14: 06 Chloride IVPB 250 mls Q24HR [facility] Administration Ketorolac Tromethamine 15 mg 12/31/18 17:21 01/05/19 09:21 Toradol IVP 01/05/19 17:22 15 mg Q6H PRN Administration Pain Lisinopril 20 mg 01/01/19 09:00 01/05/19 09:20 Zestril PO 20 mg DAILY [facility] Administration Loperamide HCl 2 mg 01/03/19 16:48 01/03/19 17:20 Imodium PO 2 mg Q6H PRN Administration Diarrhea/Loose Stools Sodium Chloride 10 ml 01/02/19 21:00 01/05/19 09:00 Flush - Normal Saline IVF Not Given Q12HR [facility] - Exam General Appearance: awake alert Eye: PERRL, anicteric sclera ENT: normocephalic atraumatic, no oropharyngeal lesions Neck: supple, symmetric, no JVD Heart: RRR, no murmur, no gallops Respiratory: CTAB, no wheezes, no rales Gastrointestinal: soft, non-tender, non-distended Extremities: no cyanosis, no clubbing, no edema, clubbing Hosp A/P (1) Acute pancreatitis Code(s): K85.90 - ACUTE PANCREATITIS WITHOUT NECROSIS OR INFECTION, UNSP Status: Acute (2) Diastolic dysfunction Code(s): I51.89 - OTHER ILL-DEFINED HEART DISEASES Status: Acute (3) Hypocalcemia Code(s): E83.51 - HYPOCALCEMIA Status: Acute (4) Volume overload Code(s): E87.70 - FLUID OVERLOAD, UNSPECIFIED Status: Acute (5) HTN (hypertension) Code(s): I10 - ESSENTIAL (PRIMARY) HYPERTENSION Status: Chronic (6) PTSD (post-traumatic stress disorder) Code(s): F43.10 - POST-TRAUMATIC STRESS DISORDER, UNSPECIFIED Status: Chronic - Plan continue antibiotics, DVT proph w/SCDs Continue current management.. Analgesics prn.. f/u chest x-ray..Concerned for pancreatitis associated pneumonia.. On antibiotics. f/u with GI.
--- NOTE | 2019-01-05 15:25 | RAD ---
Exam: Chest one view HISTORY:Pneumonia Comparison: 01/03/2019 FINDINGS: Cardiac silhouette: Normal Aorta: Unremarkable Pulmonary vessels: Normal Costophrenic angles: Clear LUNGS: Persistent opacification of the left lower lobe Pneumothorax: None Osseous abnormalities: None IMPRESSION: Persistent opacification of the left lower lobe. The degree of opacification has improved suggesting improved aeration.
--- NOTE | 2019-01-05 17:56 | PDOC.CPN ---
- Subjective Date: 01/05/19 Time: 17:54 Interval history: He is doing much better. - Review of Systems General: denies: fever/chills, weight/appetite/sleep changes, night sweats, fatigue Respiratory: denies: cough, congestion, shortness of breath, exercise intolerance Cardiovascular: denies: chest pain, palpitation, edema, paroxysmal nocturnal dyspnea, orthopnea Gastrointestinal: denies: nausea, vomiting, diarrhea, constipation, abd pain, GI bleeding Musculoskeletal: denies: pain, tenderness, stiffness, swelling, arthritis/ arthralgias Neurological: denies: numbness, syncope, seizure, weakness - Objective Allergies/Adverse Reactions: Allergies Allergy/AdvReac Type Severity Reaction Status Date / Time No Known Allergies Allergy Verified 12/31/18 11:50 Visit Medications: Current Medications Acetaminophen (Tylenol) 650 mg PO Q6H PRN PRN Reason: Headache/Fever or Pain Last Admin: 01/03/19 02:51 Dose: 650 mg Alprazolam (Xanax) 0.25 mg PO TIDPRN PRN PRN Reason: Anxiety Last Admin: 01/05/19 14:36 Dose: 0.25 mg Bisacodyl (Dulcolax) 10 mg PO DAILYPRN PRN PRN Reason: Constipation Escitalopram Oxalate (Lexapro) 20 mg PO DAILY [facility] Last Admin: 01/05/19 09:20 Dose: 20 mg Fentanyl (Sublimaze) 12.5 mcg SLOW IVP Q6H PRN PRN Reason: Pain Last Admin: 01/04/19 09:39 Dose: 12.5 mcg Furosemide (Lasix) 40 mg SLOW IVP 0600,1400 [facility] Last Admin: 01/05/19 14:07 Dose: 40 mg Guaifenesin/Dextromethorphan (Robitussin Dm) 15 ml PO Q4H PRN PRN Reason: Cough Last Admin: 01/04/19 21:57 Dose: 15 ml Meropenem 1 gm/ Device 50 mls @ 100 mls/hr IVPB 0200,1000,1800 [facility] Last Admin: 01/05/19 17:40 Dose: 50 mls Azithromycin 500 mg/ Sodium (Chloride) 250 mls @ 250 mls/hr IVPB Q24HR [facility] Last Admin: 01/05/19 14:06 Dose: 250 mls Lisinopril (Zestril) 20 mg PO DAILY [facility] Last Admin: 01/05/19 09:20 Dose: 20 mg Loperamide HCl (Imodium) 2 mg PO Q6H PRN PRN Reason: Diarrhea/Loose Stools Last Admin: 01/03/19 17:20 Dose: 2 mg Ondansetron HCl (Zofran) 4 mg IVP Q6H PRN PRN Reason: Nausea/Vomiting Sodium Chloride (Flush - Normal Saline) 10 ml IVF Q12HR [facility] Last Admin: 01/05/19 09:00 Dose: Not Given Sodium Chloride (Flush - Normal Saline) 10 ml IVF PRN PRN PRN Reason: Saline Flush Vital Signs & Weight: Vital Signs Temp Pulse Resp BP Pulse Ox 01/05/19 16:05 98.7 F 60 16 130/87 92 L 01/05/19 11:31 98.7 F 70 18 120/70 93 L 01/05/19 08:19 98.5 F 70 18 133/71 92 L Weight 199 lb 1.6 oz - Physical Exam General: alert & oriented x3 HEENT: mucus membranes moist, normocephaly Neck: supple neck Cardiac: regular rate and rhythm, no murmur Lungs: clear to auscultation Neuro: grossly intact Abdomen: active bowel sounds, soft, non-tender Extremities: no edema Skin: clear Musculoskeletal: no pain - Labs Result Diagrams: 01/03/19 04:07 01/03/19 04:07 - Telemetry Sinus rhythms and dysrhythmias: sinus rhythm - Assessment/Plan Assessment/Plan: 1. Acute pancreatitis 2. Acute volume overload, likely from IV hydration 3. HTN 4. Alcohol use PLAN: - Continue to hold HCTZ indefinitely as it may be cause of pancreatitis. - BP well controlled on current regimen - Will stop Lasix today. - May transfer to medical floor. - Will sign off. Please call [facility] any questions. - Plan to follow up in the office in 1-2 months to follow up with BP control.
[2019-01-05 21:33] LABS: Hemoglobin 13.6 g/dL (14.0-18.0); Mean Corpuscular HGB CONC 34.8 g/dL (32.0-36.0); Mean Corpuscular Hemoglobin 37.7 pg (27.0-31.0); Mean Platelet Volume 6.9 fL (7.4-10.4); Platelet Count 245 thou/uL (130-400); RBC Distribution Width 11.8 % (11.5-14.5); White Blood Cell (WBC) Count 9.7 thou/uL (4.8-10.8)
[2019-01-05 21:41] LABS: ALT (SGPT) 22 U/L (8-55); AST (SGOT) 35 U/L (5-34); Albumin 2.9 g/dL (3.5-5.0); Alkaline Phosphatase 296 U/L (40-110); Anion Gap 10 mmol/L (10-20); BUN (Urea Nitrogen) 10 mg/dL (8.9-20.6); Bilirubin, Total 0.8 mg/dL (0.2-1.2); Calc. Creatinine Clearance 157 mL/min (70-130); Calcium 7.3 mg/dL (7.8-10.44); Carbon Dioxide 32 mmol/L (22-29); Chloride 97 mmol/L (98-107); Estimated GFR-MDRD Greater than 90; Globulin 3.1 g/dL (2.4-3.5); Glucose 117 mg/dL (70-105); Lipase 48 U/L (8-78); Potassium 3.4 mmol/L (3.5-5.1); Sodium 136 mmol/L (136-145)
[2019-01-05 21:53] LABS: Band 4 % (5-11); Eosinophils 3 % (0-10); Lymphocytes 11 % (21-51); MDiff Complete? YES; Monocytes 8 % (0-10); Neutrophil 74 % (42-75)
--- NOTE | 2019-01-05 22:05 | PRG ---
DATE OF SERVICE: 01/05/2019 SUBJECTIVE: This is a 33-year-old Latin-[place] male, hospitalized with acute pancreatitis. The patient has had previous cholecystectomy 5 years ago. Apparently, he had an ERCP with papillotomy and stone extraction of bile duct at the same time. The patient has done well over the last 5 years. Does drink alcohol on a regular basis. He says he drinks about 4 beers every day. He is hospitalized with abdominal pain, nausea, vomiting, and evidence of acute pancreatitis. The abdominal CAT scan shows peripancreatic edema and also chest x-ray over the weekend showed pleural effusion, pulmonary congestion. He was seen by Cardiology and it was felt he has fluid overload. He has been diuresing well. He is making slow, but steady progress. Abdominal pain is a lot less than before. No nausea or vomiting. He is tolerating diet, but he is not eating very well. Appetite remains poor. OBJECTIVE: GENERAL: He is afebrile, appears comfortable, in no acute distress. VITAL SIGNS: His pulse is 70, blood pressure is 130/77. HEENT: Conjunctivae are clear. NECK: Supple. CARDIOVASCULAR: First and second heart sounds are normal. LUNGS: Actually clear to auscultation. ABDOMEN: Soft. Abdomen is minimally tender over the epigastric area. No rebound. The abdominal exam is very benign actually. LABORATORY DATA: Show his potassium is slightly low at 3.3. His BUN is normal at 15, creatinine is 1.17, sodium 134, chloride 101. His WBC count is coming down to 14,300, hemoglobin 10.13, hematocrit 38.9, MCV 110, platelet count is 169,000 polymorphs 71, bands 15. PLAN: 1. Continue IV fluids and diuresis. 2. Advance diet as tolerated. 3. Follow up labs. I had a long talk with Mr. Hill explaining that he should not be drinking anymore alcohol_. We very much stressed the patient about stop drinking alcohol completely. Job ID: [id number] MTDD
[2019-01-05] MEDS ORDERED: Ketorolac Tromethamine 30 MG/ML VIAL IVP SCH (22:15)
[2019-01-06] MEDS: MEROPENEM 1 GM/50 ML 1 GM in Premix Bag 1 BAG IVPB SCH ×2 (02:17→08:55)
[2019-01-06] MEDS: Fentanyl 100 MCG/2 ML VIAL SLOW IVP PRN ×2 (02:25→08:55)
[2019-01-06] MEDS ORDERED: Ketorolac Tromethamine 30 MG/ML VIAL IVP PRN (04:35)
[2019-01-06] MEDS: Furosemide 40 MG/4 ML VIAL SLOW IVP SCH ×2 (05:37→14:27)
[2019-01-06] MEDS: Lisinopril 20 MG TAB PO SCH (08:54)
[2019-01-06] MEDS: Escitalopram Oxalate 20 mg Tablet PO SCH (08:54)
[2019-01-06] MEDS: ALPRAZolam 0.25 MG TAB PO PRN (08:59)
[2019-01-06 11:41] VITALS: BP 117/76; TEMP 98.5
--- NOTE | 2019-01-08 02:15 | PQF ---
JOSE FERRELL REKHA [id number] [facility]-293 [id number] CLINICAL DOCUMENTATION CLARIFICATION FORM: POST DISCHARGE Addendum to original discharge summary date: ____ Late entry note date: __ DATE: 01/08/19 ATTN: Tana Brown Please exercise your independent, professional judgment in responding to the clarification form. Clinical indicators are provided on the bottom of this form for your review Please check appropriate box(s) to clarify if the following diagnosis has been ruled in or ruled out: Pneumonia [ X] Ruled in diagnosis [ X ] Continue to treat [ ] Resolved [ ] Ruled out diagnosis [ ] Cannot rule out diagnosis [ ] Other diagnosis [ ] Unable to determine In addition, please specify: Present on Admission (POA): [ X ] Yes [ ] No [ ] Unable to determine For continuity of documentation, please document condition throughout progress notes and discharge summary. Thank You. CLINICAL INDICATORS - SIGNS / SYMPTOMS / LABS Hospitalist PN p2 01/02 Dr Busch Review of systems: respiratory reports : Shortness of breath Chest X-ray p1 01/02 Impression : Represent left pleural effusion with adjacent atelectasis and/or pneumonia Chest X-ray p1 01/03 Impression : Represent left pleural effusion and associated infiltrates/ Pneumonia Hospitalist PN p5 01/04 Dr Gama F/u chest x-ray concerned for pancreatitis associated pneumonia RISK FACTORS Hospitalist PN p2 01/02 Acute Pancreatitis Hospitalist PN p2 01/02 Volume overload TREATMENTS MAR 01/02 IV Azithromycin Hospitalist PN p5 01/02 Out of bed/ambulate MTDD
== END 2019-01-06 15:51 | disposition home or self-care (01) | DRG 438 ==
LOC: ERS 07:02 → 2NO 09:51 → T4-B 01-05 19:50
PROVIDERS: ADMIT Internal Medicine; ATTEND Internal Medicine
DX: K85.20 Alcohol induced acute pancreatitis without necrosis or infection (principal); J18.9 Pneumonia, unspecified organism; F10.988 Alcohol use, unspecified with other alcohol-induced disorder; F43.10 Post-traumatic stress disorder, unspecified; I10 Essential (primary) hypertension; E83.51 Hypocalcemia; I51.89 Other ill-defined heart diseases; E87.70 Fluid overload, unspecified; Z90.49 Acquired absence of other specified parts of digestive tract
CPT/HCPCS: 36415; 70450; 71045; 74177; 80053; 80061; 81003; 83605; 83690; 83735; 83880; 84100; 84484; 85025; 87040; 87324; 87449; 93005; 93010; 93306; 93798; 96360; 96361; 96372; 96374; 96375; J0456; J0500; J1885; J1940; J2185; J2270; J2405; J3010; J3475; J7050; Q9966

== ENCOUNTER 2020-08-21 15:29 | Inpatient (IN) | payer OTHER ==
[~2020-08-21 15:29] MED LIST: Iopamidol-370 76% 500 ML 1 ML ONE
[2020-08-21 16:41] LABS: #Lymphocytes 0.9 thou/uL (1.20-3.40); #Monocytes 0.8 thou/uL (0.11-0.59); #Neutrophils 11.1 thou/uL (1.40-6.50); %Eosinophils 0.1 % (0.0-10.0); %Lymphocytes 6.9 % (21.0-51.0); %Monocytes 6.4 % (0.0-10.0); %Neutrophils 86.5 % (42.0-75.0); Hemoglobin 17.5 g/dL (14.0-18.0); Mean Corpuscular HGB CONC 33.8 g/dL (32.0-36.0); Mean Corpuscular Hemoglobin 34.8 pg (27.0-31.0); Mean Platelet Volume 7.3 fL (7.4-10.4); Platelet Count 235 thou/uL (130-400); Red Blood Cell (RBC) Count 5.03 mill/uL (4.70-6.10); White Blood Cell (WBC) Count 12.8 thou/uL (4.8-10.8)
[2020-08-21 17:08] LABS: ALT (SGPT) 98 U/L (8-55); AST (SGOT) 94 U/L (5-34); Albumin 4.1 g/dL (3.5-5.0); Alkaline Phosphatase 141 U/L (40-110); Anion Gap 14 mmol/L (10-20); BUN (Urea Nitrogen) 7 mg/dL (8.9-20.6); Calc. Creatinine Clearance 0 mL/min (70-130); Calcium 10.1 mg/dL (7.8-10.44); Carbon Dioxide 27 mmol/L (22-29); Chloride 98 mmol/L (98-107); Globulin 3.5 g/dL (2.4-3.5); Glucose 168 mg/dL (70-105); Lipase 508 U/L (8-78); Potassium 4.2 mmol/L (3.5-5.1); Protein, Total 7.6 g/dL (6.0-8.3); Sodium 135 mmol/L (136-145)
[2020-08-21] MEDS ORDERED: Ondansetron PF 4 MG/2 ML Vial ONE ×2 (17:13→18:52)
[2020-08-21] MEDS ORDERED: Morphine 4 MG/ML VIAL ONE ×4 (17:13→23:09)
[2020-08-21] MEDS ORDERED: Benzocaine 20% Spray 60 ML CAN ONE (18:52)
[2020-08-21] MEDS ORDERED: Lorazepam 2 MG/ML VIAL ONE (19:55)
[2020-08-21] MEDS ORDERED: Pantoprazole 40 MG VIAL ONE (20:12)
[2020-08-21] MEDS ORDERED: HYDROmorphone 0.5 MG/0.5 ML SYRINGE ONE (20:50)
[2020-08-21 20:51] LABS: Bilirubin Negative (Negative); Blood, Urine Negative (Negative); Clarity Clear (Clear); Glucose, Urine (Dipstick) Normal (Negative); Ketone, Urine 10 mg/dL (Negative); Leukocyte Negative Leu/uL (Negative); Nitrite Negative (Negative); Protein, Urine (Dipstick) Negative (Neg-Trace); Specific Gravity, Urine 1.029 (1.002-1.036); Urobilinogen Normal mg/dL (Less than 2)
[2020-08-21] MEDS ORDERED: Ondansetron PF 4 MG/2 ML Vial IVP PRN (21:30)
[2020-08-21] MEDS ORDERED: Lorazepam 2 MG/ML VIAL SLOW IVP PRN (21:34)
[2020-08-21] MEDS ORDERED: hydrALAZINE 20 MG/ML VIAL SLOW IVP PRN (21:34)
[2020-08-21] MEDS ORDERED: Acetaminophen 500 MG TAB PO PRN (21:36)
[2020-08-21] MEDS ORDERED: Morphine 4 MG/ML VIAL SLOW IVP PRN (21:37)
[2020-08-21 23:26] LABS: Hemoglobin 16.9 g/dL (14.0-18.0)
[2020-08-21 23:35] LABS: INR-International Normal Ratio 1.1; PTT 27.7 sec (22.9-36.1); Prothrombin Time 14.3 sec (12.0-14.7)
[2020-08-22 01:34] LABS: Cardiac Risk 2.8 (Less than 4.5)
[2020-08-22] MEDS: Morphine 2 MG/ML VIAL SLOW IVP PRN ×7 (02:22→21:28)
[2020-08-22] MEDS: Sodium Chloride 0.9% 1,000 ML IV SCH ×4 (02:27→19:11)
[2020-08-22] MEDS: Thiamine HCl 200 MG/2 ML VIAL SLOW IVP SCH ×2 (03:32→21:27)
[2020-08-22 03:45] VITALS: BMI 29.4
[2020-08-22 05:14] LABS: #Lymphocytes 0.8 thou/uL (1.20-3.40); #Monocytes 1.1 thou/uL (0.11-0.59); #Neutrophils 9.6 thou/uL (1.40-6.50); %Basophils 0.2 % (0.0-1.0); %Eosinophils 0.1 % (0.0-10.0); %Lymphocytes 6.9 % (21.0-51.0); %Monocytes 9.5 % (0.0-10.0); %Neutrophils 83.3 % (42.0-75.0); Hemoglobin 16.2 g/dL (14.0-18.0); Hemoglobin A1c 5.5 % (4.0-6.0); Mean Corpuscular HGB CONC 32.8 g/dL (32.0-36.0); Mean Corpuscular Hemoglobin 34.4 pg (27.0-31.0); Mean Platelet Volume 7.3 fL (7.4-10.4); Platelet Count 219 thou/uL (130-400); RBC Distribution Width 11.9 % (11.5-14.5); Red Blood Cell (RBC) Count 4.72 mill/uL (4.70-6.10); White Blood Cell (WBC) Count 11.5 thou/uL (4.8-10.8)
[2020-08-22 05:36] LABS: ALT (SGPT) 73 U/L (8-55); AST (SGOT) 55 U/L (5-34); Albumin 3.5 g/dL (3.5-5.0); Alkaline Phosphatase 111 U/L (40-110); Bilirubin, Direct 0.5 mg/dL (0.1-0.3); Bilirubin, Total 0.8 mg/dL (0.2-1.2); Protein, Total 6.5 g/dL (6.0-8.3)
[2020-08-22 05:38] LABS: Anion Gap 14 mmol/L (10-20); BUN (Urea Nitrogen) 4 mg/dL (8.9-20.6); Calc. Creatinine Clearance 142 mL/min (70-130); Calcium 8.5 mg/dL (7.8-10.44); Carbon Dioxide 23 mmol/L (22-29); Chloride 102 mmol/L (98-107); Glucose 126 mg/dL (70-105); Potassium 3.7 mmol/L (3.5-5.1); Sodium 135 mmol/L (136-145)
[2020-08-22 07:26] LABS: Hemoglobin 16.4 g/dL (14.0-18.0)
[2020-08-22] MEDS: Pantoprazole 40 MG VIAL IVP SCH ×2 (08:05→20:22)
[2020-08-22 15:57] LABS: Hemoglobin 15.7 g/dL (14.0-18.0)
[2020-08-23] MEDS: Morphine 2 MG/ML VIAL SLOW IVP PRN ×5 (00:38→22:00)
[2020-08-23] MEDS: Sodium Chloride 0.9% 1,000 ML IV SCH ×3 (04:36→22:10)
[2020-08-23 05:17] LABS: #Basophils 0.1 thou/uL (0.0-0.2); #Eosinphils 0.2 thou/uL (0.0-0.7); #Lymphocytes 1.7 thou/uL (1.20-3.40); #Neutrophils 5.9 thou/uL (1.40-6.50); %Basophils 0.6 % (0.0-1.0); %Eosinophils 2.3 % (0.0-10.0); %Lymphocytes 19.4 % (21.0-51.0); %Monocytes 11.4 % (0.0-10.0); %Neutrophils 66.4 % (42.0-75.0); Hemoglobin 15.7 g/dL (14.0-18.0); Mean Corpuscular HGB CONC 35.6 g/dL (32.0-36.0); Mean Corpuscular Hemoglobin 36.9 pg (27.0-31.0); Mean Platelet Volume 7.3 fL (7.4-10.4); Platelet Count 184 thou/uL (130-400); RBC Distribution Width 11.8 % (11.5-14.5); Red Blood Cell (RBC) Count 4.25 mill/uL (4.70-6.10); White Blood Cell (WBC) Count 8.9 thou/uL (4.8-10.8)
[2020-08-23 05:42] LABS: ALT (SGPT) 46 U/L (8-55); AST (SGOT) 37 U/L (5-34); Albumin 3.3 g/dL (3.5-5.0); Alkaline Phosphatase 108 U/L (40-110); Bilirubin, Direct 0.7 mg/dL (0.1-0.3); Bilirubin, Total 1.3 mg/dL (0.2-1.2); Protein, Total 6.2 g/dL (6.0-8.3)
[2020-08-23 05:42] LABS: Anion Gap 16 mmol/L (10-20); BUN (Urea Nitrogen) 5 mg/dL (8.9-20.6); Calc. Creatinine Clearance 135 mL/min (70-130); Calcium 8.6 mg/dL (7.8-10.44); Carbon Dioxide 21 mmol/L (22-29); Chloride 101 mmol/L (98-107); Glucose 89 mg/dL (70-105); Sodium 134 mmol/L (136-145)
[2020-08-23] MEDS: Pantoprazole 40 MG VIAL IVP SCH (08:15)
[2020-08-23] MEDS ORDERED: Morphine 2 MG/ML VIAL ONE (14:44)
[2020-08-23] MEDS ORDERED: PROPOFOL 200 MG/20 ML VIAL ONE (16:29)
[2020-08-23] MEDS: Thiamine HCl 200 MG/2 ML VIAL SLOW IVP SCH (22:00)
[2020-08-24 04:48] LABS: #Eosinphils 0.2 thou/uL (0.0-0.7); #Lymphocytes 1.6 thou/uL (1.20-3.40); #Monocytes 0.9 thou/uL (0.11-0.59); #Neutrophils 4.4 thou/uL (1.40-6.50); %Basophils 0.4 % (0.0-1.0); %Eosinophils 3.3 % (0.0-10.0); %Lymphocytes 22.7 % (21.0-51.0); %Monocytes 12.4 % (0.0-10.0); %Neutrophils 61.2 % (42.0-75.0); Hemoglobin 15.5 g/dL (14.0-18.0); Mean Corpuscular HGB CONC 35.7 g/dL (32.0-36.0); Mean Corpuscular Hemoglobin 36.6 pg (27.0-31.0); Mean Platelet Volume 7.2 fL (7.4-10.4); Platelet Count 186 thou/uL (130-400); RBC Distribution Width 11.8 % (11.5-14.5); Red Blood Cell (RBC) Count 4.24 mill/uL (4.70-6.10); White Blood Cell (WBC) Count 7.2 thou/uL (4.8-10.8)
[2020-08-24 05:06] LABS: Anion Gap 14 mmol/L (10-20); BUN (Urea Nitrogen) 6 mg/dL (8.9-20.6); Calc. Creatinine Clearance 144 mL/min (70-130); Calcium 8.7 mg/dL (7.8-10.44); Carbon Dioxide 21 mmol/L (22-29); Chloride 101 mmol/L (98-107); Glucose 104 mg/dL (70-105); Potassium 3.9 mmol/L (3.5-5.1); Sodium 132 mmol/L (136-145)
[2020-08-24 05:10] LABS: ALT (SGPT) 38 U/L (8-55); AST (SGOT) 33 U/L (5-34); Albumin 3.2 g/dL (3.5-5.0); Alkaline Phosphatase 118 U/L (40-110); Bilirubin, Direct 0.5 mg/dL (0.1-0.3); Bilirubin, Total 0.9 mg/dL (0.2-1.2); Protein, Total 6.2 g/dL (6.0-8.3)
[2020-08-24] MEDS: Sodium Chloride 0.9% 1,000 ML IV SCH (06:19)
[2020-08-24] MEDS: Morphine 2 MG/ML VIAL SLOW IVP PRN (06:20)
[2020-08-24] MEDS ORDERED: Sodium Chloride 0.65% Nasal 44 ML BOT EA NARE PRN (08:01)
[2020-08-24] MEDS ORDERED: Calcium Carbonate 500 MG ChewTAB PO PRN (08:01)
[2020-08-24] MEDS ORDERED: Cepastat Lozenges 1 LOZ PO PRN (08:01)
[2020-08-24] MEDS ORDERED: Zolpidem Tartrate 5 MG TAB PO PRN (08:01)
[2020-08-24] MEDS ORDERED: Bisacodyl 5 MG TAB PO PRN (08:01)
[2020-08-24] MEDS ORDERED: Loratadine 10 MG TAB PO PRN (08:01)
[2020-08-24] MEDS ORDERED: Senokot S 8.6-50 MG TAB PO PRN (08:01)
[2020-08-24] MEDS ORDERED: Ondansetron ODT 4 MG TAB SL PRN (08:01)
[2020-08-24] MEDS ORDERED: GUAIFENESIN SF SOLN 200 MG/10 ML UDCUP PO PRN (08:01)
[2020-08-24] MEDS ORDERED: Loperamide HCl 2 MG CAP PO PRN (08:01)
[2020-08-24] MEDS ORDERED: hydrOXYzine 25 MG TAB PO PRN (08:02)
[2020-08-24] MEDS ORDERED: traZODone HCl 50 MG TAB PO PRN (08:08)
[2020-08-24] MEDS ORDERED: Escitalopram Oxalate 20 mg Tablet PO SCH (09:00)
[2020-08-24] MEDS ORDERED: busPIRone HCl 10 MG TAB PO SCH (09:00)
[2020-08-24 11:53] VITALS: BP 141/98; TEMP 97.7
== END 2020-08-24 11:55 | disposition home or self-care (01) | DRG 368 ==
LOC: ERS 15:29 → 2NO 23:18
PROVIDERS: ADMIT Internal Medicine; ATTEND Internal Medicine
PROC: 0DB38ZX Excision of Lower Esophagus, Via Natural or Artificial Opening Endoscopic, Diagnostic (ICD-10-PCS; principal; 2020-08-23)
DX: K20.91 Esophagitis, unspecified with bleeding (principal); K85.20 Alcohol induced acute pancreatitis without necrosis or infection; I50.32 Chronic diastolic (congestive) heart failure; I82.890 Acute embolism and thrombosis of other specified veins; E87.1 Hypo-osmolality and hyponatremia; K76.6 Portal hypertension; I11.0 Hypertensive heart disease with heart failure; F43.10 Post-traumatic stress disorder, unspecified; D73.5 Infarction of spleen; K76.0 Fatty (change of) liver, not elsewhere classified; K31.89 Other diseases of stomach and duodenum; R73.9 Hyperglycemia, unspecified; D75.89 Other specified diseases of blood and blood-forming organs; D72.829 Elevated white blood cell count, unspecified; F41.9 Anxiety disorder, unspecified; F10.10 Alcohol abuse, uncomplicated; Z90.49 Acquired absence of other specified parts of digestive tract; Z71.41 Alcohol abuse counseling and surveillance of alcoholic
CPT/HCPCS: 36415; 43752; 74018; 74175; 74176; 80048; 80053; 80061; 80076; 81003; 83036; 83690; 85025; 85610; 85730; 86850; 86900; 86901; 88305; 93005; 96374; 96375; 96376; C9113; J1170; J2060; J2270; J2405; J2704; J3411; Q9967

== ENCOUNTER 2021-05-26 09:40 | Outpatient (CLI) | payer OTHER ==
[2021-05-26] MEDS ORDERED: Iopamidol 370 76% 100 ML VIAL ONE (12:30)
== END 2021-05-26 09:41 | disposition home or self-care (01) ==
LOC: CT 09:40
PROVIDERS: ATTEND Internal Medicine Gastroenterology
DX: R10.13 Epigastric pain (principal); K57.90 Diverticulosis of intestine, part unspecified, without perforation or abscess without bleeding
CPT/HCPCS: 74160; Q9967

== ENCOUNTER 2021-09-05 05:51 | Emergency (ER) | payer OTHER ==
[2021-09-05] MEDS ORDERED: Ketorolac Tromethamine 30 MG/ML VIAL ONE (06:35)
[2021-09-05] MEDS ORDERED: HYDROcodone/Acetaminophen 10/325 mg Tablet ONE (06:35)
== END 2021-09-05 07:15 | disposition home or self-care (01) ==
LOC: ERS 05:51
DX: M79.89 Other specified soft tissue disorders (principal); I10 Essential (primary) hypertension
CPT/HCPCS: 96372; J1885